=== PATIENT | male | born 1990 | race Caucasian/White ===

== ENCOUNTER 2021-02-15 17:31 | Emergency (ER) | payer MEDICAID ==
[~2021-02-15] VITALS: Ht 177.8 cm; Wt 141.0 kg
[2021-02-15] MEDS ORDERED: TETANUS, DIPHTHERIA, PERTUSSIS VAC/PF 0.5ML (>7YR OLD) IM ONE (21:15)
[2021-02-15] MEDS ORDERED: BACITRACIN ZINC OINT UDPKT TOP ONE (21:15)
[2021-02-15] MEDS ORDERED: CEPH500C2 MT (22:58)
[2021-02-15] MEDS ORDERED: GUAI600T26 MT (22:58)
[2021-02-15 23:10] VITALS: BP 145/98
== END 2021-02-15 23:15 | disposition home or self-care (01) ==
LOC: ER 17:31
DX: S60.511A Abrasion of right hand, initial encounter (principal); S90.411A Abrasion, right great toe, initial encounter; J06.9 Acute upper respiratory infection, unspecified; W01.0XXA Fall on same level from slipping, tripping and stumbling without subsequent striking against object, initial encounter; Y93.89 Activity, other specified; Y92.89 Other specified places as the place of occurrence of the external cause
CPT/HCPCS: 71045; 73130; 73660; 90471; 90715; 99284

== ENCOUNTER 2021-09-16 02:14 | Emergency (ER) | payer MEDICAID ==
[~2021-09-16] VITALS: Ht 177.8 cm; Wt 132.0 kg
[~2021-09-16 02:14] MED LIST: CEPH500C2 MT; GUAI600T26 MT
[2021-09-16 02:30] VITALS: BP 129/84
== END 2021-09-16 02:30 | disposition home or self-care (01) ==
LOC: ER 02:14
DX: Z13.9 Encounter for screening, unspecified (principal)
CPT/HCPCS: 99281

== ENCOUNTER 2022-01-02 19:54 | Emergency (ER) | payer MEDICAID ==
[~2022-01-02] VITALS: Ht 177.8 cm; Wt 139.4 kg
[2022-01-02 20:20] VITALS: BP 119/85
[2022-01-02] MEDS ORDERED: AMOX1TAB16 MT (21:47)
[2022-01-02] MEDS ORDERED: TOPUD PO (21:47)
[2022-01-02] MEDS ORDERED: IBUP-2028 MT (21:47)
[2022-01-02] MEDS ORDERED: AMOXICILLIN/POTASSIUM CLAVULANATE 875/125MG TAB PO ONE (22:00)
[2022-01-02] MEDS ORDERED: IBUPROFEN 400MG TABLET PO ONE (22:00)
[2022-01-02] MEDS ORDERED: ACETAMINOPHEN 325MG TABLET PO ONE (22:00)
== END 2022-01-02 22:43 | disposition home or self-care (01) ==
LOC: ER 19:54
DX: K02.9 Dental caries, unspecified (principal)
CPT/HCPCS: 99284